=== PATIENT | female | born 1965 | race African-American/Black ===

== ENCOUNTER 2016-08-17 21:03 | Emergency (ER) | payer MEDICAID ==
[~2016-08-17] VITALS: Ht 160 cm; Wt 120.2 kg
[~2016-08-17 21:03] MED LIST: HYDROCODON-ACE1 EA15 ORAL; IBUPROFEN600 MG ORAL; IBUPROFEN600 MG PO; LASIX20 M1 ORAL; LEVAQUIN500 MG ORAL; NAPROSYN500 M1 ORAL; NKM; NORCO 5-325 TA1 EACH ORAL; PERCOCET 5-3251 EACH PO; VALIUM5 MG PO; VICODIN 5-5001 EACH PO
[2016-08-17] MEDS ORDERED: Naproxen 500mg tab ORAL ONE (21:30)
[2016-08-17] MEDS ORDERED: DuoNeb 0.5-3(2.5)mg/3ml neb HHN ONE (21:30)
[2016-08-17] MEDS ORDERED: Azithromycin 250mg tab ORAL ONE (21:30)
[2016-08-17] MEDS ORDERED: ALBUTEROL SULF8.5 GM INH (21:31)
[2016-08-17] MEDS ORDERED: NAPROSYN500 M1 ORAL (21:31)
[2016-08-17] MEDS ORDERED: AZITHROMYCIN250 MG ORAL (21:31)
--- NOTE | 2016-08-17 21:46 | Emergency Room Report ---
History of Present Illness General Chief Complaint: Upper Respiratory Illness Source: Patient, PMD Present Illness HPI Patient is a 50-year-old female brought in by ambulance after increased difficulty breathing. The patient gradual onset of symptoms over the past 7 days. Patient initially had a fever patient had complained of productive cough for the past 2 days. Patient denied any vomiting or increased leg swelling. The patient stated that she had no prior history of asthma. Patient had denied any chest pain except with coughing. Allergies: Coded Allergies: No Known Allergies (Unverified , 08/24/12) Patient History Past Medical History: see triage record Last Menstrual Period: Post Now: No : 2 Para: 2 Reviewed Nursing Documentation: PMH: Agreed, PSxH: Agreed Nursing Documentation-PMH Hx Cardiac Problems: No Hx Hypertension: No - water pills Hx Cancer: No Hx Gastrointestinal Problems: Yes Hx Neurological Problems: Yes - CHRONIC BACK PAIN Hx Transient Ischemic Attacks: Yes Review of Systems All Other Systems: negative except mentioned in HPI Physical Exam Vital Signs Date Time Temp Pulse Resp B/P Pulse Ox O2 Delivery O2 Flow Rate FiO2 08/17/16 21:07 99.3 109 24 123/76 98 Room Air General Appearance: well appearing, no apparent distress, alert, GCS 15, non- toxic Head: normocephalic, atraumatic ENT: hearing grossly normal, normal voice Neck: full range of motion, supple Respiratory: no respiratory distress, speaking full sentences Cardiovascular #1: normal inspection, normal peripheral pulses, regular rate, rhythm, no edema Gastrointestinal: normal inspection, normal bowel sounds, non tender, soft, no mass Musculoskeletal: normal inspection, back normal, digits/nails normal, no calf tenderness Neurologic: normal inspection, alert, oriented x3, responsive, 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 Patient's benign exam and does not appear to require any further imaging at this time. The patient was given a breathing treatment. The patient was noted to have symptoms consistent with an viral infection with secondary pneumonia.The chest x-ray one view interpreted by me showed normal cardiac size with the right lung infiltrate there is no evident the mediastinal widening. The patient is advised to follow up with primary care doctor in 1-2 days. Patient is advised to return if any worsening condition or if any changes in status that are concerning. Last Vital Signs Date Time Temp Pulse Resp B/P Pulse Ox O2 Delivery O2 Flow Rate FiO2 08/17/16 21:07 99.3 109 24 123/76 98 Room Air Status: improved Disposition: HOME, SELF-CARE Condition: Stable Scripts Albuterol Sulfate* (ALBUTEROL SULFATE MDI*) 8.5 Gm Hfa.aer.ad 2 PUFF INH Q4H, #1 INH 0 Refills Prov: Franklin Hall 08/17/16 Azithromycin* (ZITHROMAX*) 250 Mg Tablet 250 MG ORAL DAILY for 4 Days, #4 TAB 0 Refills Prov: Franklin Hall 08/17/16 Naproxen* (NAPROSYN*) 500 Mg Tablet 500 MG ORAL TWICE A DAY, #30 TAB Prov: Franklin Hall 08/17/16 Patient Instructions: Community-Acquired Pneumonia, Adult Franklin Hall Aug 17, 2016 21:46
[2016-08-17 22:09] VITALS: BP 119/66
[2016-08-17 22:12] VITALS: BP 119/66
--- NOTE | 2016-08-18 09:58 | Diagnostic Imaging Report ---
Indication: Shortness of breath Technique: XRAY CHEST 1 V Comparison: 01/18/15 Findings: The cardiomediastinal silhouette is within normal limits. There is no focal consolidation, pneumothorax or pleural effusion. Osseous structures demonstrate no acute abnormality. Impression: No acute cardiopulmonary disease.
== END 2016-08-17 22:15 | disposition home or self-care (01) ==
LOC: EMR 21:32
DX: J18.9 Pneumonia, unspecified organism (principal); Z86.73 Personal history of transient ischemic attack (TIA), and cerebral infarction without residual deficits
CPT/HCPCS: 71010; 94640; 94664; 99284; Q0144; J7620

== ENCOUNTER 2016-08-27 19:09 | Emergency (ER) | payer MEDICAID ==
[~2016-08-27] VITALS: Ht 160 cm; Wt 120.2 kg
[~2016-08-27 19:09] MED LIST changes: +ALBUTEROL SULF8.5 GM INH; +AZITHROMYCIN250 MG ORAL
[2016-08-27] MEDS ORDERED: Albuterol ud Inhalation HHN ONE (20:30)
--- NOTE | 2016-08-27 20:52 | Emergency Room Report ---
History of Present Illness General Chief Complaint: Upper Respiratory Illness Present Illness HPI 50-year-old female presents to emergency Department complaining of left-sided rib cage pain that radiates to the back x2 days. Patient reports pain as 5/10 in severity and she notes that she feels the pain during the end of expiration. Patient reports being treated for pneumonia 2 weeks ago and states her cough has not resolved since. Patient does report moderate amount of coughing daily. Patient denies productive sputum at this time. Patient states she has an inhaler which she has been using intermittently but not as frequently as prescribed. Patient states that she does have relief of her symptoms temporarily for approximately one hour after using albuterol inhaler. Patient denies fevers or chills although she does report that she is currently experiencing menopausal hot flashes. She denies recent fall, recent travel. Patient denies past medical history other than HTN which is managed with HCTZ. Allergies: Coded Allergies: TRAMADOL (Verified Allergy, Unknown, 08/17/16) Patient History Past Medical History: see triage record Past Surgical History: none Pertinent Family History: none Immunizations: UTD Reviewed Nursing Documentation: PMH: Agreed, PSxH: Agreed Nursing Documentation-PMH Hx Cardiac Problems: No Hx Hypertension: No - water pills Hx Cancer: No Hx Gastrointestinal Problems: Yes Hx Neurological Problems: Yes - CHRONIC BACK PAIN Hx Transient Ischemic Attacks: Yes Review of Systems All Other Systems: negative except mentioned in HPI Physical Exam Vital Signs Date Time Temp Pulse Resp B/P Pulse Ox O2 Delivery O2 Flow Rate FiO2 08/27/16 19:27 98.1 107 20 132/79 100 Room Air Sp02 EP Interpretation: reviewed, abnormal - tachycardic at 107 General Appearance: no apparent distress, alert, GCS 15, non-toxic Head: normocephalic, atraumatic Eyes: bilateral eye PERRL, bilateral eye normal inspection ENT: hearing grossly normal, normal pharynx, no angioedema, normal voice Neck: full range of motion, supple/symm/no masses Respiratory: chest non-tender, lungs clear, normal breath sounds, speaking full sentences Cardiovascular #1: regular rate, rhythm, no edema, normal capillary refill Gastrointestinal: non tender, soft, no guarding, no rebound Rectal: deferred Musculoskeletal: back normal, gait/station normal, normal range of motion, non- tender, no calf tenderness Neurologic: alert, oriented x3, responsive, motor strength/tone normal, sensory intact, speech normal Psychiatric: judgement/insight normal, memory normal, mood/affect normal, no suicidal/homicidal ideation Skin: normal color, no rash, warm/dry, well hydrated Lymphatic: no adenopathy Medical Decision Making PA Attestation Dr. Krishna is my supervising Physician whom patient management has been discussed with. ER Course PT. presents to ED c/ o left sided pain in the chest and back with continued coughing x 2 weeks. pain onset is x 2 days. pain exacerbated with exhalation. VS: mildly tachycardic at 107, afebrile, 100% oxygenation, non tachypneic, although shallow breaths are observed. pt. states deep breaths illicit coughing. dDX considered include but are not limited to: URI, pneumonia, atelectasis, Bronchitis, Pleurisy, TX, PE HPI and PE most consistent with bronchitis type cough and pleurisy will see if pt. has relief from another nebulized treatment, or will r/o TX/PE ORDERS: - CXR: no consolidation, no effusion per interpretation in the ED by Dr. Krishna. Interventions: Nebulized albuterol, upon re-evaluation pt. states she is still having the discomfort and that the treatment had no effect on the pain. that she feels with exhalation. d/w Dr. Hall whom previously saw this pt. 2 weeks ago, and who the pt. will be signed out to today. will do labs to R/O TX and PE. - EKG: -CBC:Pending CMP:Pending Troponins:Pending -Ck-MB:Pending -Total CK: Pending - D-Dimer:Pending EKG Diagnostic Results Rate: normal - 95 Rhythm: NSR ST Segments: no acute changes ASA given to the pt in ED: No PA Scribe Text interpreted by Dr. Hall Chest X-Ray Diagnostic Results EP Interpretation: Yes - interpreted by Dr. Krishna Findings: no consolidation, no effusion, no pneumothorax, no acute cardiopulmonary disease Number of Views: 1 PA Scribe Text interpreted by Dr. Krishna Last Vital Signs Date Time Temp Pulse Resp B/P Pulse Ox O2 Delivery O2 Flow Rate FiO2 08/27/16 20:36 83 16 Room Air 1/30/17 20:36 100 08/27/16 19:27 98.1 132/79 Disposition: HOME, SELF-CARE Condition: Stable Signed Out To: Dr. Hall Scripts Guaifenesin/Codeine Phos* (ROBITUSSIN AC*) 118 Ml Liquid 5 ML ORAL Q4H Y for For Cough, #118 ML 0 Refills Prov: Franklin Hall 08/27/16 Additional Instructions: Take medications as directed. Follow up with PCP in 3-5 days Return sooner to ED if new symptoms occur, or current symptoms become worse. Janice Segura Aug 27, 2016 20:52
[2016-08-27 22:04] LABS: BASOPHILS % (AUTO) 0.9 % (0.0-2.0); EOSINOPHILS % (AUTO) 2.3 % (0.0-3.0); LYMPHOCYTES % (AUTO) 39.7 % (20.0-45.0); MEAN CORPUSCULAR HEMOGLOBIN 26.6 PG (27.0-31.0); MEAN CORPUSCULAR HGB CONC 31.3 G/DL (32.0-36.0); MEAN CORPUSCULAR VOLUME 85 FL (80-99); MEAN PLATELET VOLUME 7.8 FL (6.5-10.1); MONOCYTES % (AUTO) 6.7 % (1.0-10.0); NEUTROPHILS % (AUTO) 50.4 % (45.0-75.0); PLATELET COUNT 196 K/UL (150-450); RED BLOOD COUNT 4.49 M/UL (4.20-5.40); RED CELL DISTRIBUTION WIDTH 13.4 % (11.6-14.8); WHITE BLOOD COUNT 4.6 K/UL (4.8-10.8)
[2016-08-27 22:30] LABS: ALANINE AMINOTRANSFERASE 29 U/L (3-33); ALBUMIN/GLOBULIN RATIO 1.2 (1.0-2.7); ANION GAP 14 (5-15); ASPARTATE AMINO TRANSFERASE 18 U/L (5-40); CALCIUM 9.9 mg/dL (8.6-10.2); CARBON DIOXIDE 29 mEQ/L (20-30); CHLORIDE 101 mEQ/L (98-107); CREATININE 0.8 mg/dL (0.5-0.9); GLOMERULAR FILTRATION RATE > 60 mL/min (>60); HEMOLYSIS 5; POTASSIUM 3.7 mEQ/L (3.4-4.9); SODIUM 144 mEQ/L (135-145); TOTAL PROTEIN 7.6 g/dL (6.6-8.7)
[2016-08-27 22:54] LABS: TROPONIN I < 0.30 ng/mL (<=0.30)
[2016-08-27 23:25] VITALS: BP 119/77
[2016-08-27] MEDS ORDERED: GUAIFENESIN-CO118 M1 ORAL (23:38)
[2016-08-27 23:46] VITALS: BP 119/77
--- NOTE | 2016-08-28 10:51 | Diagnostic Imaging Report ---
Indication: COUGH Technique: One view of the chest Comparison: 08/19/16 Findings: Lungs and pleural spaces are clear. Heart size is normal no significant interim change Impression: No acute process This agrees with the preliminary interpretation provided by the emergency room physician
[2016-08-29 14:34] LABS: CKMB < 1.5 ng/mL (< 3.8)
--- NOTE | 2016-08-30 15:42 | Cardiology Report ---
APPROVED REPORT EKG Measurement Heart [id number] Normal sinus rhythm Possible Left atrial enlargement Borderline ECG
== END 2016-08-27 23:48 | disposition home or self-care (01) ==
LOC: EMR 20:51
DX: R07.9 Chest pain, unspecified (principal); R05 Cough; R00.0 Tachycardia, unspecified; I10 Essential (primary) hypertension; Z86.73 Personal history of transient ischemic attack (TIA), and cerebral infarction without residual deficits; Z87.19 Personal history of other diseases of the digestive system
CPT/HCPCS: 36415; 71010; 80053; 82550; 82553; 84484; 85025; 85379; 93005; 94640; 94664; 99283

== ENCOUNTER 2017-04-29 14:23 | Emergency (ER) | payer MEDICAID ==
[~2017-04-29] VITALS: Ht 160 cm; Wt 117.9 kg
[~2017-04-29 14:23] MED LIST changes: +GUAIFENESIN-CO118 M1 ORAL
[2017-04-29] MEDS ORDERED: Tylenol #3 tab (300mg/30mg) ORAL ONE (15:30)
--- NOTE | 2017-04-29 16:37 | Diagnostic Imaging Report ---
Indication: Back pain Comparison: None Findings: 3 views of the sacrum and coccyx were obtained. Findings: No acute fracture is identified. The sacroiliac joints are unremarkable. Sacral ala appear symmetric. There is some obscuring due to overlying bowel gas and stool. Impression: No acute injury identified.
[2017-04-29] MEDS ORDERED: IBUPROFEN600 MG ORAL (16:39)
[2017-04-29] MEDS ORDERED: ACETAMINOPHEN-1 EAC1 ORAL (16:39)
[2017-04-29 16:50] VITALS: BP 148/99
--- NOTE | 2017-04-29 22:08 | Emergency Room Report ---
History of Present Illness General Chief Complaint: Pain Source: Patient Present Illness HPI The patient is a 51-year-old female presenting for back pain. She states that this began 3 weeks prior after going to [employer] ([place]) and sitting on water slide. Pain is an 8/10 dull ache and does not radiate from the mid lower back. Worse with laying down and sitting. She has tried Motrin and Tylenol which does help. She denies any numbness or tingling. She denies previous back injury. She denies urinary incontinence. She denies any other symptoms including N, V, F, chills Allergies: Coded Allergies: TRAMADOL (Verified Allergy, Unknown, 08/17/16) Patient History Past Medical History: see triage record Pertinent Family History: none Last Menstrual Period: na Now: No Reviewed Nursing Documentation: PMH: Agreed, PSxH: Agreed Nursing Documentation-PMH Hx Cardiac Problems: No Hx Hypertension: Yes Hx Cancer: No Hx Gastrointestinal Problems: Yes Hx Neurological Problems: Yes - CHRONIC BACK PAIN Hx Transient Ischemic Attacks: Yes Review of Systems All Other Systems: negative except mentioned in HPI Physical Exam Vital Signs Date Time Temp Pulse Resp B/P (MAP) Pulse Ox O2 Delivery O2 Flow Rate FiO2 04/29/17 14:45 98.1 121 18 152/101 98 Room Air Sp02 EP Interpretation: reviewed, normal General Appearance: no apparent distress, alert, GCS 15, non-toxic Head: normocephalic, atraumatic Eyes: bilateral eye normal inspection, bilateral eye PERRL ENT: hearing grossly normal, normal pharynx, no angioedema, normal voice Gastrointestinal: normal bowel sounds, non tender, soft, non-distended, no guarding, no rebound Musculoskeletal: normal inspection, digits/nails normal, gait/station normal, tender - TTP over the midline coccyx Neurologic: alert, oriented x3, responsive, motor strength/tone normal, sensory intact, speech normal Psychiatric: judgement/insight normal, memory normal, mood/affect normal, no suicidal/homicidal ideation Skin: normal color, no rash, warm/dry, well hydrated Medical Decision Making PA Attestation Dr. Krishna is my supervising physician. Patient management was discussed with my supervising physician Diagnostic Impression: Primary Impression: Contusion Qualified Codes: S70.00XA - Contusion of unspecified hip, initial encounter ER Course The patient is a 51-year-old female presenting for back pain. Ddx considered include but not limited to lumbar strain, degenerative disease, epidural abscess, cauda equina, chronic pain, fracture, among others PE: NAD TTP over midline coccyx. No edema or ecchymosis. Normal gait Xrays unremarkable The patient will be DC'ed home with prescription for pain medications. ER precautions given Other X-Ray Diagnostic Results Other X-Ray Diagnostic Results : X-Ray ordered: sacrum/coccyx # of Views/Limited Vs Complete: 3 View Indication: Pain EP Interpretation: Yes Interpretation: no dislocation, no soft tissue swelling, no fractures Impression: No acute disease Electronically Signed by: NOAH Arteaga Scribe Text I have reviewed the xray with my supervising physician and interpretation is that there are no fractures, dislocations or soft tissue swelling. Last Vital Signs Date Time Temp Pulse Resp B/P (MAP) Pulse Ox O2 Delivery O2 Flow Rate FiO2 04/29/17 16:50 98.1 75 18 148/99 98 Room Air Status: improved Disposition: HOME, SELF-CARE Condition: Improved Scripts Acetaminophen With Codeine (T#3) (TYLENOL #3 TAB*) Y Tab 1 TAB ORAL Q6HR Y for For Pain, #10 TAB Prov: GISELLE CROWE.A. 04/29/17 Ibuprofen* (MOTRIN*) 600 Mg Tablet 600 MG ORAL Q8H Y for For Pain, #30 TAB 0 Refills Prov: GISELLE CROWE.A. 04/29/17 Patient Instructions: Contusion Additional Instructions: I discussed my findings with the patient. All questions and concerns have been answered. Treatment and medication compliance have been addressed. I advised the patient that they need to follow up with PMD in 3-5 days. Return to ED if symptoms worsen, new symptoms arise, or if needed for any reason. Patient verbalized understanding of discharge instructions. GISELLE CROWE Apr 29, 2017 22:08
== END 2017-04-29 19:50 | disposition home or self-care (01) ==
LOC: EMR 15:11
DX: S30.0XXA Contusion of lower back and pelvis, initial encounter (principal); X50.9XXA Other and unspecified overexertion or strenuous movements or postures, initial encounter; Y92.830 Public park as the place of occurrence of the external cause; G89.29 Other chronic pain; I10 Essential (primary) hypertension; Z86.73 Personal history of transient ischemic attack (TIA), and cerebral infarction without residual deficits; Z88.6 Allergy status to analgesic agent
CPT/HCPCS: 72220; 99284

== ENCOUNTER 2017-08-10 18:28 | Emergency (ER) | payer MEDICAID ==
[~2017-08-10] VITALS: Ht 160 cm; Wt 120.2 kg
[~2017-08-10 18:28] MED LIST changes: +ACETAMINOPHEN-1 EAC1 ORAL
[2017-08-10 18:59] VITALS: BP 137/96
[2017-08-10 19:30] VITALS: BP 137/96
[2017-08-10 21:00] VITALS: BP 132/90
--- NOTE | 2017-08-10 21:32 | Emergency Room Report ---
History of Present Illness General Chief Complaint: Headache Source: Patient, Medical Record Present Illness HPI 51 YO Female. presents to the ED c/o headache x since awakening this am. 03/07 in severity. KELLEY was progressive however facial numbness was since waking up. Described as left-sided facial paresthesias with dull ache to the left side of head. Patient denies pulsating vein or scalp tenderness. 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 denies unilateral weakness, or symptoms in the UE's or LE's, denies recent trauma or fall. denies recent illness, tinnitus, or neck pain. denies visual changes, N/V. Allergies: Coded Allergies: TRAMADOL (Verified Allergy, Unknown, 08/17/16) Patient History Past Medical History: see triage record, CVA/TIA Past Surgical History: none Pertinent Family History: none Last Menstrual Period: 04/13 Now: No Reviewed Nursing Documentation: PMH: Agreed, PSxH: Agreed Nursing Documentation-PMH Past Medical History: No History, Except For Hx Cardiac Problems: No Hx Hypertension: Yes Hx Cancer: No Hx Gastrointestinal Problems: Yes Hx Neurological Problems: Yes - CHRONIC BACK PAIN Hx Transient Ischemic Attacks: Yes Review of Systems All Other Systems: negative except mentioned in HPI Physical Exam Vital Signs Date Time Temp Pulse Resp B/P (MAP) Pulse Ox O2 Delivery O2 Flow Rate FiO2 08/10/17 18:30 98.2 98 18 137/96 98 Room Air Sp02 EP Interpretation: reviewed, normal General Appearance: no apparent distress, alert, GCS 15, non-toxic Head: normocephalic, atraumatic Eyes: bilateral eye normal inspection, bilateral eye PERRL, bilateral eye EOMI ENT: hearing grossly normal, normal voice, TMs + canals normal Neck: full range of motion, no meningismus, no bony tend Respiratory: lungs clear, normal breath sounds, speaking full sentences Cardiovascular #1: regular rate, rhythm Rectal: deferred Musculoskeletal: back normal, gait/station normal, normal range of motion, non- tender Neurologic: alert, oriented x3, responsive, motor strength/tone normal, sensory intact, normal gait, speech normal, no pronator, other - negative ledezma's, grossly normal Psychiatric: judgement/insight normal Skin: normal color, no rash, warm/dry, well hydrated Lymphatic: no adenopathy Medical Decision Making PA Attestation Dr. Paul is my supervising Physician whom patient management has been discussed with. Diagnostic Impression: Primary Impression: Facial numbness Additional Impressions: Facial pain, atypical Headache Qualified Codes: R51 - Headache suspected early baer palsy ER Course 51 YO Female. presents to the ED c/o headache x since awakening this am. 10 in severity. KELLEY was progressive however facial numbness was since waking up. Described as left-sided facial paresthesias with dull ache to the left side of head. Patient denies pulsating vein or scalp tenderness. 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 denies unilateral weakness, or symptoms in the UE's or LE's, denies recent trauma or fall. denies recent illness, tinnitus, or neck pain. denies visual changes, N/V. Ddx considered but are not limited to migraine, SAH, Psedudo motor Cerebri, Mass lesion, Cluster KELLEY, Tension KELLEY, Post lumbar puncture KELLEY. CVA, bells palsy, shingles. Vital signs: are WNL, pt. is afebrile H&PE are most consistent with atypical KELLEY and left sided facial paresthesia. highly suspect impending baer's palsy. pt. does not exhibit neurological deficit or facial droop. ORDERS: - CT Head no contrast- ordered due to history of CVA and patient's age-was preliminarily read as normal ED INTERVENTIONS: - Reglan-- improvement of pain however of left-sided paresthesia continues without change. -Discussed with patient symptoms are highly suspicious of impending bells palsy. Discussed with patient that she'll be discharged with oral steroids to be taken only she begins to have left eyebrow droop. Discussed with this patient that if her symptoms worsen or she is facial droop that does not involve the l eyebrows that she needs to return promptly to the emergency department as this may indicate serious pathology. She verbalizes her understanding and agreement with this treatment plan. DISCHARGE: At this time pt. is stable for d/c to home. Will provide printed patient care instructions, and any necessary prescriptions. Care plan and follow up instructions have been discussed with the patient prior to discharge. CT/MRI/US Diagnostic Results CT/MRI/US Diagnostic Results : Imaging Test Ordered: CT Head no contrast. Impression "No evidence of acute fracture, hemorrhage, or intracranial process "-Per Preliminary [facility] radiology report- Please see report for specific details. Last Vital Signs Date Time Temp Pulse Resp B/P (MAP) Pulse Ox O2 Delivery O2 Flow Rate FiO2 08/10/17 18:59 98.2 78 18 137/96 98 Room Air Disposition: HOME, SELF-CARE Condition: Stable Scripts Prednisone* (PREDNISONE*) 20 Mg Tablet 3 TAB ORAL DAILY for 5 Days, #15 TAB Prov: Janice Segura 08/10/17 Aspirin/Acetaminophen/Caffeine (EXCEDRIN MIGRAINE GELTAB) 1 Each Tablet 1 EACH PO Q6HR, #20 TAB Prov: Janice Segura 08/10/17 Patient Instructions: Baer Palsy, General Headache Without Cause Additional Instructions: Take medications as directed. Follow up with a Primary Care Provider in 3-5 days, even if your symptoms have resolved. --Please review list of primary care clinics, if you do not already have a primary care provider Return sooner to ED if new symptoms occur, or current symptoms become worse. - Please note that this Emergency Department Report was dictated using [email or web address] grader technology software, occasionally this can lead to erroneous entry secondary to interpretation by the dictation equipment. Janice Segura Aug 10, 2017 21:32
[2017-08-10] MEDS ORDERED: PREDNISONE20 MG ORAL (21:36)
[2017-08-10] MEDS ORDERED: EXCEDRIN MIGRA1 EACH PO (21:36)
[2017-08-10 21:52] VITALS: BP 137/96
--- NOTE | 2017-08-11 08:29 | Diagnostic Imaging Report ---
Indication: Pain, headache Technique: Continuous helical CT scanning of the head was performed utilizing automated exposure control without intravenous contrast material. Axial and coronal reconstructions were obtained. Comparison: 06/11/2015 CT dose: Total DLP 1354.97 mGycm; CTDI vol 70.38 mGy Findings: There is no acute intracranial hemorrhage, mass effect, midline shift or cortical edema. Ventricles are normal in size and configuration and stable compared to the prior exam. Visualized mastoid air cells and paranasal sinuses are unremarkable. No focal lesions of the bony calvarium or soft tissues of the scalp are seen. Impression: No evidence of acute intracranial hemorrhage, mass effect or cortical edema. MRI may be obtained for more sensitive evaluation as clinically indicated. This corresponds with the [facility] preliminary report. The CT scanner at [facility] is accredited by the [employer] and the scans are performed using protocols designed to limit radiation exposure to as low as reasonably achievable to attain images of sufficient resolution adequate for diagnostic evaluation.
== END 2017-08-10 21:52 | disposition home or self-care (01) ==
LOC: EMR 18:46
DX: R20.2 Paresthesia of skin (principal); R51 Headache; I10 Essential (primary) hypertension; Z86.73 Personal history of transient ischemic attack (TIA), and cerebral infarction without residual deficits
CPT/HCPCS: 70450; 99284

== ENCOUNTER 2017-10-27 15:05 | Emergency (ER) | payer MEDICAID ==
[~2017-10-27] VITALS: Ht 160 cm; Wt 120.2 kg
[~2017-10-27 15:05] MED LIST changes: +EXCEDRIN MIGRA1 EACH PO; +PREDNISONE20 MG ORAL
[2017-10-27 15:15] VITALS: BP 181/90
[2017-10-27] MEDS ORDERED: Ketorolac 60mg Inj IM ONE (16:00)
--- NOTE | 2017-10-27 16:09 | Emergency Room Report ---
History of Present Illness General Chief Complaint: Back Pain-No Injury Source: Patient Present Illness HPI 52-year-old female presents to the emergency department complaining of 8 out of 10 in severity right-sided low back pain with intermittent radiation down into the right hip 3 days. She states onset was after working for long hours this weekend. Patient states she stands on her feet the entire time. Patient states she has a history of sciatica in the past. Patient denies trauma or fall. Patient denies history of cancer or recent spinal procedures. Denies fevers, chills, night sweats. Denies numbness tingling or loss of sensation or gross motor movements of the extremities, incontinence of bowel or bladder. Denies CP, Palpitations, LOC, AMS, dizziness, Changes in Vision, Sensation, paresthesias, or a sudden severe headache. Allergies: Coded Allergies: TRAMADOL (Verified Allergy, Unknown, 08/17/16) Patient History Past Medical History: see triage record Past Surgical History: none Pertinent Family History: none Last Menstrual Period: Post Immunizations: UTD Reviewed Nursing Documentation: PMH: Agreed; PSxH: Agreed Nursing Documentation-PMH Hx Cardiac Problems: No Hx Hypertension: Yes Hx Cancer: No Hx Gastrointestinal Problems: Yes Hx Neurological Problems: Yes - CHRONIC BACK PAIN, Prior back injury Hx Transient Ischemic Attacks: Yes Review of Systems All Other Systems: negative except mentioned in HPI Physical Exam Vital Signs Date Time Temp Pulse Resp B/P (MAP) Pulse Ox O2 Delivery O2 Flow Rate FiO2 10/27/17 15:15 98.2 85 17 181/90 98 Room Air 98.2 Sp02 EP Interpretation: reviewed, normal General Appearance: alert, GCS 15, non-toxic, mild distress Head: normocephalic, atraumatic ENT: hearing grossly normal, normal voice Neck: full range of motion Respiratory: chest non-tender, lungs clear, normal breath sounds, no respiratory distress, no wheezing, speaking full sentences Cardiovascular #1: regular rate, rhythm, no edema, normal capillary refill Gastrointestinal: non tender, soft Rectal: deferred Genitourinary: normal inspection, no CVA tenderness Musculoskeletal: back normal, gait/station normal, normal range of motion, tender - Right paraspinal ttp to the musculature of the lower L-spine, and begining of the sacrum area. FROM, Ambulatory. no midline ttp. Neurologic: alert, oriented x3, responsive, motor strength/tone normal, sensory intact, normal gait, speech normal, grossly normal Psychiatric: judgement/insight normal Skin: normal color, no rash, warm/dry, well hydrated Medical Decision Making PA Attestation Dr. Hall is my supervising Physician whom patient management has been discussed with. Diagnostic Impression: Primary Impression: Back pain Qualified Codes: M54.41 - Lumbago with sciatica, right side Additional Impression: Muscle spasm of back ER Course 52-year-old female presents to the emergency department complaining of 8 out of 10 in severity right-sided low back pain with intermittent radiation down into the right hip 3 days. She states onset was after working for long hours this weekend. Patient states she stands on her feet the entire time. Patient states she has a history of sciatica in the past. Patient denies trauma or fall. Patient denies history of cancer or recent spinal procedures. Denies fevers, chills, night sweats. Denies numbness tingling or loss of sensation or gross motor movements of the extremities, incontinence of bowel or bladder. Denies CP, Palpitations, LOC, AMS, dizziness, Changes in Vision, Sensation, paresthesias, or a sudden severe headache. Ddx considered but are not limited to Fracture, dislocation, contusion, epidural abscess, Sprain/Strain/Spasm Vital signs: are WNL, pt. is afebrile H&PE are most consistent with muscle strain/spasm + with right sciatica exacerbation- hx of sciatica ORDERS: none required at this time. ED INTERVENTIONS: -Soma PO -Toradol IM DISCHARGE: At this time pt. is stable for d/c to home. Will provide printed patient care instructions, and any necessary prescriptions. Care plan and follow up instructions have been discussed with the patient prior to discharge. Last Vital Signs Date Time Temp Pulse Resp B/P (MAP) Pulse Ox O2 Delivery O2 Flow Rate FiO2 10/27/17 15:15 98.2 85 19 181/90 98 Room Air 98.2 Disposition: HOME, SELF-CARE Condition: Stable Scripts Naproxen* (NAPROXEN*) 500 Mg Tablet 500 MG ORAL TWICE A WEEK, #20 TAB 0 Refills Prov: Janice Segura P.A. 10/27/17 Lidocaine (Lidoderm) 1 Each Adh..patch 1 PATCH TOPIC DAILY, #30 PATCH 0 Refills Patch(es) may remain in place for up to 12 hours in any 24-hour period. Prov: Janice Segura 10/27/17 Methocarbamol* (ROBAXIN*) 500 Mg Tablet 1000 MG PO TID, #42 TAB 0 Refills Prov: Janice Segura 10/27/17 Patient Instructions: Back Pain, Adult Additional Instructions: Take medications as directed. Follow up with a Primary Care Provider in 3-5 days, even if your symptoms have resolved. --Please review list of primary care clinics, if you do not already have a primary care provider Return sooner to ED if new symptoms occur, or current symptoms become worse. Do not drink alcohol, drive, or operate heavy machinery while taking Robaxin as this may cause drowsiness. - Please note that this Emergency Department Report was dictated using [employer] Software[employer] supervisor technology software, occasionally this can lead to erroneous entry secondary to interpretation by the dictation equipment. Janice Segura Oct 27, 2017 16:09
[2017-10-27] MEDS ORDERED: ROBAXIN500 MG PO (16:11)
[2017-10-27] MEDS ORDERED: NAPROXEN500 M2 ORAL (16:11)
[2017-10-27] MEDS ORDERED: LIDODERM700 M1 TOPIC (16:11)
[2017-10-27 16:20] VITALS: BP 153/103
== END 2017-10-27 16:33 | disposition home or self-care (01) ==
LOC: EMR 15:49
DX: M54.5 Low back pain (principal); M62.830 Muscle spasm of back; G89.29 Other chronic pain; I10 Essential (primary) hypertension; Z86.73 Personal history of transient ischemic attack (TIA), and cerebral infarction without residual deficits
CPT/HCPCS: 96372; 99284

== ENCOUNTER 2018-07-07 22:28 | Emergency (ER) | payer MEDICAID ==
[~2018-07-07] VITALS: Ht 160 cm; Wt 127.0 kg
[~2018-07-07 22:28] MED LIST changes: +LIDODERM700 M1 TOPIC; +NAPROXEN500 M2 ORAL; +ROBAXIN500 MG PO
[2018-07-07 22:39] VITALS: BP 151/72
[2018-07-07 23:35] LABS: BASOPHILS % (AUTO) 1.3 % (0.0-2.0); EOSINOPHILS % (AUTO) 3.1 % (0.0-3.0); HEMATOCRIT 37.4 % (37.0-47.0); HEMOGLOBIN 12.1 G/DL (12.0-16.0); LYMPHOCYTES % (AUTO) 31.5 % (20.0-45.0); MEAN CORPUSCULAR VOLUME 81 FL (80-99); MONOCYTES % (AUTO) 4.3 % (1.0-10.0); NEUTROPHILS % (AUTO) 59.8 % (45.0-75.0); PLATELET COUNT 197 K/UL (150-450); RED BLOOD COUNT 4.65 M/UL (4.20-5.40); RED CELL DISTRIBUTION WIDTH 13.1 % (11.6-14.8); WHITE BLOOD COUNT 5.5 K/UL (4.8-10.8)
[2018-07-07 23:36] LABS: APPEARANCE,URINE CLEAR; BILIRUBIN, URINE NEGATIVE (NEGATIVE); GLUCOSE, URINE (UA) NEGATIVE (NEGATIVE); KETONES,URINE NEGATIVE (NEGATIVE); LEUKOCYTE ESTERASE ,URINE NEGATIVE (NEGATIVE); NITRITE,URINE NEGATIVE (NEGATIVE); PH,URINE 5 (4.5-8.0); UROBILINOGEN,URINE NORMAL MG/DL (0.0-1.0)
[2018-07-07 23:40] LABS: COLOR,URINE YELLOW; PROTEIN,URINE NEGATIVE (NEGATIVE)
[2018-07-07 23:52] LABS: ANION GAP 9 mmol/L (5-15); BLOOD UREA NITROGEN 21 mg/dL (7-18); CALCIUM 9.4 MG/DL (8.5-10.1); CARBON DIOXIDE 30 MMOL/L (21-32); CHLORIDE 103 MMOL/L (98-107); CREATININE 0.9 MG/DL (0.55-1.30); POTASSIUM 3.4 MMOL/L (3.5-5.1); SODIUM 142 MMOL/L (136-145)
[2018-07-08] VITALS: BP 146/62
[2018-07-08 00:05] LABS: ALANINE AMINOTRANSFERASE 29 U/L (12-78); ALBUMIN 3.8 G/DL (3.4-5.0); ALBUMIN/GLOBULIN RATIO 0.8 (1.0-2.7); ALKALINE PHOSPHATASE 53 U/L (46-116); ASPARTATE AMINO TRANSFERASE 16 U/L (15-37); BILIRUBIN,TOTAL 0.3 MG/DL (0.2-1.0)
[2018-07-08] MEDS ORDERED: Aspirin Baby 81mg ORAL ONE (00:15)
[2018-07-08] MEDS ORDERED: Sodium Chloride 500ML 500 ML IV ONE (00:15)
--- NOTE | 2018-07-08 02:51 | Emergency Room Report ---
History of Present Illness General Chief Complaint: Upper Respiratory Illness Source: Patient, Medical Record Present Illness HPI Patient 52-year-old female who presented after increased cough and difficulty breathing. Patient reports having have worsened orthopnea and generalized weakness. This had been present for several weeks. The patient recently started on Lasix after having increased lower extremity swelling. This had been the long standing. Patient denied any fever. She reports having increased orthopnea which required her to sit up into a chair at nighttime. The patient recently been started on Lasix but does not have any prior history of congestive heart failure. Allergies: Coded Allergies: TRAMADOL (Verified Allergy, Unknown, 08/17/16) Patient History Past Medical History: see triage record Last Menstrual Period: n/a : 4 Para: 2 Reviewed Nursing Documentation: PMH: Agreed; PSxH: Agreed Nursing Documentation-PMH Past Medical History: No History, Except For Hx Cardiac Problems: No Hx Hypertension: Yes Hx Cancer: No Hx Gastrointestinal Problems: Yes Hx Neurological Problems: Yes - CHRONIC BACK PAIN, Prior back injury Hx Transient Ischemic Attacks: Yes Review of Systems All Other Systems: negative except mentioned in HPI Physical Exam Vital Signs Date Time Temp Pulse Resp B/P (MAP) Pulse Ox O2 Delivery O2 Flow Rate FiO2 07/07/18 22:30 98.2 109 23 151/72 100 Room Air Sp02 EP Interpretation: reviewed, normal General Appearance: normal inspection, well appearing, no apparent distress, alert, GCS 15, obese Head: atraumatic ENT: normal ENT inspection, hearing grossly normal, normal voice Neck: normal inspection, full range of motion, supple, no bony tend Respiratory: normal inspection, lungs clear, normal breath sounds, no respiratory distress, no retraction, no wheezing Cardiovascular #1: regular rate, rhythm, edema - 2+_ Gastrointestinal: normal inspection, normal bowel sounds, non tender, soft, no guarding, no hernia Genitourinary: no CVA tenderness Musculoskeletal: normal inspection, back normal, normal range of motion Neurologic: normal inspection, alert, responsive, speech normal Psychiatric: normal inspection, judgement/insight normal, mood/affect normal Skin: normal inspection, normal color, no rash Medical Decision Making Diagnostic Impression: Primary Impression: Chest pain Additional Impressions: ACS (acute coronary syndrome) Upper respiratory infection ER Course Patient was in for shortness of breath. Differential included but was not limited to anemia, pneumonia, pneumothorax, myocardial infarction, pericardial effusion, congestive heart failure, acidosis. Because of complexity of patient' s case laboratory testing and imaging studies were ordered. The patient was noted to have the EKG interpreted by me with the normal sinus rhythm with a rate of 99 with inferior T-wave inversion and lateral T-wave inversion the patient the was noted to have bilateral asymmetric leg swelling.The patient appears to have some evidence of bronchitis however given the patient's abnormal EKG patient will likely require further inpatient workup due to recent chest discomfort. Chest x-ray one view interpreted by me showed normal cardiac size without evident infiltrate.The patient was given aspirin in the emergency department.Patient was discussed with Dr. Mcgovern for [facility] [place] Labs Test 07/07/18 23:00 White Blood Count 5.5 K/UL (4.8-10.8) Red Blood Count 4.65 M/UL (4.20-5.40) Hemoglobin 12.1 G/DL (12.0-16.0) Hematocrit 37.4 % (37.0-47.0) Mean Corpuscular Volume 81 FL (80-99) Mean Corpuscular Hemoglobin 26.1 PG (27.0-31.0) Mean Corpuscular Hemoglobin Concent 32.4 G/DL (32.0-36.0) Red Cell Distribution Width 13.1 % (11.6-14.8) Platelet Count 197 K/UL (150-450) Mean Platelet Volume 8.0 FL (6.5-10.1) Neutrophils (%) (Auto) 59.8 % (45.0-75.0) Lymphocytes (%) (Auto) 31.5 % (20.0-45.0) Monocytes (%) (Auto) 4.3 % (1.0-10.0) Eosinophils (%) (Auto) 3.1 % (0.0-3.0) Basophils (%) (Auto) 1.3 % (0.0-2.0) Urine Color Yellow Urine Appearance Clear Urine pH 5 (4.5-8.0) Urine Specific Addison 1.025 (1.005-1.035) Urine Protein Negative (NEGATIVE) Urine Glucose (UA) Negative (NEGATIVE) Urine Ketones Negative (NEGATIVE) Urine Blood Negative (NEGATIVE) Urine Nitrite Negative (NEGATIVE) Urine Bilirubin Negative (NEGATIVE) Urine Urobilinogen Normal MG/DL (0.0-1.0) Urine Leukocyte Esterase Negative (NEGATIVE) Urine RBC 0-2 /HPF (0 - 2) Urine WBC 0 /HPF (0 - 2) Urine Squamous Epithelial Cells Few /LPF (NONE/OCC) Urine Bacteria None /HPF (NONE) Sodium Level 142 MMOL/L (136-145) Potassium Level 3.4 MMOL/L (3.5-5.1) Chloride Level 103 MMOL/L (98-107) Carbon Dioxide Level 30 MMOL/L (21-32) Anion Gap 9 mmol/L (5-15) Blood Urea Nitrogen 21 mg/dL (7-18) Creatinine 0.9 MG/DL (0.55-1.30) Estimat Glomerular Filtration Rate > 60 mL/min (>60) Glucose Level 116 MG/DL (74-106) Calcium Level 9.4 MG/DL (8.5-10.1) Total Bilirubin 0.3 MG/DL (0.2-1.0) Aspartate Amino Transf (AST/SGOT) 16 U/L (15-37) Alanine Aminotransferase (ALT/SGPT) 29 U/L (12-78) Alkaline Phosphatase 53 U/L (46-116) Troponin I 0.000 ng/mL (0.000-0.056) Total Protein 8.8 G/DL (6.4-8.2) Albumin 3.8 G/DL (3.4-5.0) Globulin 5.0 g/dL Albumin/Globulin Ratio 0.8 (1.0-2.7) Thyroid Stimulating Hormone (TSH) 3.029 uiU/mL (0.358-3.740) EKG Diagnostic Results Rate: normal Rhythm: NSR ST Segments: no acute changes Last Vital Signs Date Time Temp Pulse Resp B/P (MAP) Pulse Ox O2 Delivery O2 Flow Rate FiO2 07/08/18 00:00 98.2 96 21 146/62 98 Room Air Status: unchanged Disposition: XFER SHT-TRM HOSP Condition: Serious Referrals: [facility],REFERRING (PCP) Franklin Hall MD Jul 08, 2018 02:51
[2018-07-08 03:00] VITALS: BP 129/68
[2018-07-08 05:00] VITALS: BP 126/63
[2018-07-08 05:11] VITALS: BP 126/63
--- NOTE | 2018-07-08 10:45 | Diagnostic Imaging Report ---
Indication: Dyspnea Comparison: 08/27/2016 A single view chest radiograph was obtained. Findings: Cardiomediastinal appearance is within normal limits for age. The lungs are clear. Pulmonary vascularity is appropriate. The diaphragmatic contour is smooth and costophrenic angles are sharp. No pleural effusions are identified. The bones are unremarkable. Impression: No acute findings
--- NOTE | 2018-07-08 15:27 | Cardiology Report ---
APPROVED REPORT EKG Measurement Heart [id number] Normal sinus rhythm Possible Left atrial enlargement T wave abnormality, consider inferior ischemia Abnormal ECG
== END 2018-07-08 05:15 | disposition short-term general hospital (02) ==
LOC: EMR 22:52
DX: R07.9 Chest pain, unspecified (principal); I24.9 Acute ischemic heart disease, unspecified; J06.9 Acute upper respiratory infection, unspecified; E66.9 Obesity, unspecified; I10 Essential (primary) hypertension; Z86.73 Personal history of transient ischemic attack (TIA), and cerebral infarction without residual deficits; Z88.8 Allergy status to other drugs, medicaments and biological substances
CPT/HCPCS: 36415; 71045; 80053; 81001; 84443; 84484; 85025; 86710; 86850; 86900; 86901; 93005; 99285; J8499

== ENCOUNTER 2018-08-18 19:43 | Emergency (ER) | payer MEDICAID ==
[~2018-08-18] VITALS: Ht 167.6 cm; Wt 105.7 kg
[2018-08-18 20:04] VITALS: BP 131/68
--- NOTE | 2018-08-18 20:05 | NUR ---
ED Nurse Note: Patient ambulated to ED with c/o left knee pain x1 day. Denies fall or trauma. AO4. NAD. Reports pain 05/07. ERMD at bedside
--- NOTE | 2018-08-18 20:13 | Emergency Room Report ---
History of Present Illness General Chief Complaint: Pain Source: Patient Present Illness HPI 52-year-old female patient presents the ER complaining of left knee pain x1 day. Patient reports pain symptoms began yesterday. Reports pain is continuous throughout the day whether at rest or with movement. Reports pain with movement. Denies acute injury or trauma. Denies history of gout. Denies calf pain. Denies taking blood thinner medications. States takes naproxen for pain symptoms. Denies history of diabetes. Denies recent travel or periods of immobilization. Denies history of knee surgery. Denies history of arthritis knee however reports history of arthritis in back. Allergies: Coded Allergies: TRAMADOL (Verified Allergy, Unknown, 08/17/16) Patient History Past Medical History: see triage record Now: No Reviewed Nursing Documentation: PMH: Agreed; PSxH: Agreed Nursing Documentation-PMH Past Medical History: No History, Except For Hx Cardiac Problems: No Hx Hypertension: Yes Hx Cancer: No Hx Gastrointestinal Problems: Yes Hx Neurological Problems: Yes - CHRONIC BACK PAIN, Prior back injury Hx Transient Ischemic Attacks: Yes Review of Systems All Other Systems: negative except mentioned in HPI Physical Exam Vital Signs Date Time Temp Pulse Resp B/P (MAP) Pulse Ox O2 Delivery O2 Flow Rate FiO2 08/18/18 19:59 98.1 116 14 131/68 98 Room Air Sp02 EP Interpretation: reviewed, normal General Appearance: well appearing, no apparent distress, alert, GCS 15, non- toxic Head: normocephalic, atraumatic Eyes: bilateral eye normal inspection, bilateral eye PERRL ENT: hearing grossly normal, normal pharynx, no angioedema, normal voice, uvula midline, moist mucus membranes Neck: full range of motion Respiratory: lungs clear, normal breath sounds, no rhonchi, no respiratory distress, no accessory muscle use, no wheezing, speaking full sentences Cardiovascular #1: regular rate, rhythm, no edema Cardiovascular #2: 2+ dorsalis pedis (R), 2+ dorsalis pedis (L) Musculoskeletal: back normal, digits/nails normal, gait/station normal, no calf tenderness, decreased range of motion - Left knee secondary to pain, Wendie' s Sign negative, other - NVI, no erythema, no edema, no warmth to touch, no ecchymosis, no laxity with varus or valgus stress, no gouty tophi, tender - left knee Neurologic: alert, oriented x3, responsive, motor strength/tone normal, sensory intact Skin: no rash Medical Decision Making PA Attestation Dr. Cobb is my supervising Physician whom patient management has been discussed with. Diagnostic Impression: Primary Impression: Knee pain, left ER Course Pt. presents to the ED c/o left knee pain. Ddx considered but are not limited to fracture, sprain, strain, contusion, dislocation, effusion, arthritis, tendopathy. Negative Homans sign, low suspicion for DVT per well's criteria. No erythema, no warmth to touch, no fever, nontoxic appearing, low suspicion for septic joint. Soft compartments, no pulselessness, no pallor, no paresthesias, low suspicion for compartment syndrome at this time. Vital signs: are WNL, pt. is afebrile Ordered X-ray and pain medication. ER COURSE Provided with pain medication and lidocaine patch. Pain with movement. An X-ray of the left knee shows no acute disease per the preliminary reading. DUKE wrap was applied to the left knee and was checked afterwards by me showing good alignment and support with distal neurovascular functioning intact. Crutches provided. Patient instructed on RICE method: rest, ice, compression, elevation. Patient instructed on rest, ice and heat. Patient instructed to be WBAT Contact information for orthopedic urgent care provided, follow-up with urgent care if unable to followup with primary care provider and get referral to client experience specialist. Followup with primary care provider. Discuss referral to ortho/pain management/ PT as needed. Discuss further imaging with MRI/CT as needed. DISCHARGE: -Rx provided for Tylenol for pain symptoms. At this time pt. is stable for d/c to home. Patient is resting comfortably, in no acute distress, nontoxic appearing, talking without difficulty. Will provide printed patient care instructions, and any necessary prescriptions. Patient instructed to follow with primary care provider in 3 - 5 days and to request further follow-up as needed. Care plan and follow up instructions have been discussed with the patient prior to discharge. Take medications as directed. Patient questions asked and answered. Patient reports understanding and agreement to treatment plan. ER precautions given, patient instructed to return to ER immediately for any new or worsening of symptoms. - Please note that this Emergency Department Report was dictated using [employer] waiter technology software, occasionally this can lead to erroneous entry secondary to interpretation by the dictation equipment. Other X-Ray Diagnostic Results Other X-Ray Diagnostic Results : X-Ray ordered: Left knee # of Views/Limited Vs Complete: 3 View Indication: Pain EP Interpretation: Yes PA Xray: Interpretation reviewed, by supervising MD, and agrees with findings. Interpretation: no dislocation, no soft tissue swelling, no fractures Impression: No acute disease ARNULFO Scribe Text Vick Lucero PA-Jasvir Last Vital Signs Date Time Temp Pulse Resp B/P (MAP) Pulse Ox O2 Delivery O2 Flow Rate FiO2 08/18/18 20:04 98.0 116 14 131/68 98 Room Air Status: improved Disposition: HOME, SELF-CARE Condition: Stable Scripts Acetaminophen* (TYLENOL EXTRA STRENGTH*) 500 Mg Tablet 500 MG ORAL Q8H PRN for Prn Headache/Temp > 101, #30 TAB 0 Refills Prov: Moshe Lucero 08/18/18 Patient Instructions: Knee Pain, [id number] Additional Instructions: Patient instructed to follow up with primary care provider and discuss further referral to orthopedics/physical therapy/pain management as needed. If unable to followup with PCP, followup with orthopedic urgent care in 5-7 days , call to schedule appointment. Patient instructed on RICE method: rest, ice, compression, elevation. Patient instructed to WBAT. Take medications as directed. Patient questions asked and answered. ER precautions given, patient instructed to return to ER immediately for any new or worsening of symptoms. [facility] [address] [facility] [address] [facility], [id number] [email or web address] Moshe Lucero Aug 18, 2018 20:13
[2018-08-18] MEDS ORDERED: Ketorolac 30mg Inj IM ONE (20:15)
--- NOTE | 2018-08-18 20:25 | NUR ---
ED Nurse Note: Imaging at bedside
[2018-08-18] MEDS ORDERED: TYLENOL EXTRA500 MG ORAL (20:49)
[2018-08-18 20:56] VITALS: BP 131/68
--- NOTE | 2018-08-18 20:56 | NUR ---
ED Nurse Note: Patient cleared for discharge per ERMD. AO4. NAD. VSS. Patient given prescriptions and discharge instructions; verbalized understanding. ID band removed. Patient ambulated out with all personal belongings with steady gait.
--- NOTE | 2018-08-19 10:33 | Diagnostic Imaging Report ---
Indications: Left knee pain Technique: Three views of the left knee Comparison: None Findings: No acute fractures. No dislocations. Joint spaces are preserved. No radiopaque foreign body. Normal mineralization. Impression: No acute process
== END 2018-08-18 20:56 | disposition home or self-care (01) ==
LOC: EMR 20:12
DX: M25.562 Pain in left knee (principal); I10 Essential (primary) hypertension; G89.29 Other chronic pain; M54.9 Dorsalgia, unspecified; Z86.73 Personal history of transient ischemic attack (TIA), and cerebral infarction without residual deficits
CPT/HCPCS: 73562; 96372; 99283; J1885

== ENCOUNTER 2018-12-09 16:23 | Emergency (ER) | payer MEDICAID ==
[~2018-12-09] VITALS: Ht 157.5 cm; Wt 122.5 kg
[~2018-12-09 16:23] MED LIST changes: +TYLENOL EXTRA500 MG ORAL
[2018-12-09 16:31] VITALS: BP 145/67
[2018-12-09] MEDS ORDERED: ZOFRAN4 M3 ORAL (17:01)
--- NOTE | 2018-12-09 17:01 | Emergency Room Report ---
History of Present Illness General Chief Complaint: Nausea Source: Patient Present Illness HPI 53-year-old female presenting with nausea. She says that 1-1/2 weeks ago she was at a restaurant, and she was drinking a drink and she thinks that she may have swallowed a piece of broken glass. She denies any abdominal pain. She has been able to eat and drink but she says that she has intense nausea that comes and goes. No chest pain no shortness of breath. Has had normal stool Allergies: Coded Allergies: TRAMADOL (Verified Allergy, Unknown, 08/17/16) Patient History Past Medical History: see triage record Past Surgical History: none Pertinent Family History: none Reviewed Nursing Documentation: PMH: Agreed; PSxH: Agreed Nursing Documentation-PMH Past Medical History: No History, Except For Hx Cardiac Problems: No Hx Hypertension: Yes Hx Cancer: No Hx Gastrointestinal Problems: Yes Hx Neurological Problems: Yes - CHRONIC BACK PAIN, Prior back injury Hx Transient Ischemic Attacks: Yes Review of Systems All Other Systems: negative except mentioned in HPI Physical Exam Vital Signs Date Time Temp Pulse Resp B/P (MAP) Pulse Ox O2 Delivery O2 Flow Rate FiO2 12/09/18 16:31 98.2 87 17 97 Room Air Sp02 EP Interpretation: reviewed, normal General Appearance: normal inspection, well appearing, no apparent distress, alert, GCS 15, non-toxic Head: normocephalic, atraumatic Eyes: bilateral eye normal inspection, bilateral eye PERRL, bilateral eye EOMI ENT: normal ENT inspection, normal pharynx, normal voice, moist mucus membranes Neck: normal inspection, full range of motion, supple Respiratory: normal inspection, lungs clear, normal breath sounds, no respiratory distress, no retraction, no wheezing, speaking full sentences, chest symmetrical Cardiovascular #1: normal inspection, regular rate, rhythm, no edema, normal capillary refill Cardiovascular #2: 2+ radial (R), 2+ radial (L) Gastrointestinal: normal inspection, non tender, soft, non-distended, no guarding Musculoskeletal: normal inspection, back normal, normal range of motion, non- tender Neurologic: normal inspection, alert, oriented x3, responsive, motor strength/ tone normal, sensory intact, normal gait, speech normal Psychiatric: normal inspection, judgement/insight normal, memory normal Skin: normal inspection, normal color, no rash, warm/dry, well hydrated, normal turgor Medical Decision Making Diagnostic Impression: Primary Impression: UTI (urinary tract infection) Additional Impression: Nausea alone ER Course 53-year-old female with nausea, said that she swallowed glass one half weeks ago DDX: Patient is not having any severe abdominal pain or vomiting to suggest any bowel perforation, could be GERD/gastritis Plan: Obtain labs, Zofran and fluids and reassess ER course: Patient has remained stable during ED stay. got fluids/zofran feeling much better Disposition: Patient is to be discharged to home. Prescriptions given are Zofran/macrobid Patient is instructed to follow up with their primary care doctor within 5 days. Please note that this Emergency Department Report was dictated using [employer] informatica developer technology software, occasionally this can lead to erroneous entry secondary to interpretation by the dictation equipment Laboratory Tests Test 12/09/18 17:10 White Blood Count 4.6 K/UL (4.8-10.8) L Red Blood Count 4.54 M/UL (4.20-5.40) Hemoglobin 11.8 G/DL (12.0-16.0) L Hematocrit 36.4 % (37.0-47.0) L Mean Corpuscular Volume 80 FL (80-99) Mean Corpuscular Hemoglobin 26.0 PG (27.0-31.0) L Mean Corpuscular Hemoglobin Concent 32.4 G/DL (32.0-36.0) Red Cell Distribution Width 13.6 % (11.6-14.8) Platelet Count 166 K/UL (150-450) Mean Platelet Volume 6.7 FL (6.5-10.1) Neutrophils (%) (Auto) 56.8 % (45.0-75.0) Lymphocytes (%) (Auto) 32.6 % (20.0-45.0) Monocytes (%) (Auto) 4.6 % (1.0-10.0) Eosinophils (%) (Auto) 4.7 % (0.0-3.0) H Basophils (%) (Auto) 1.3 % (0.0-2.0) Urine Color Pale yellow Urine Appearance Clear Urine pH 6 (4.5-8.0) Urine Specific North 1.015 (1.005-1.035) Urine Protein Negative (NEGATIVE) Urine Glucose (UA) Negative (NEGATIVE) Urine Ketones Negative (NEGATIVE) Urine Blood Negative (NEGATIVE) Urine Nitrite Negative (NEGATIVE) Urine Bilirubin Negative (NEGATIVE) Urine Urobilinogen Normal MG/DL (0.0-1.0) Urine Leukocyte Esterase 1+ (NEGATIVE) H Urine RBC 2-4 /HPF (0 - 2) H Urine WBC 5-10 /HPF (0 - 2) H Urine Squamous Epithelial Cells Few /LPF (NONE/OCC) Urine Bacteria Moderate /HPF (NONE) H Urine Yeast Few /HPF (NONE) H Sodium Level 143 MMOL/L (136-145) Potassium Level 4.1 MMOL/L (3.5-5.1) Chloride Level 107 MMOL/L (98-107) Carbon Dioxide Level 30 MMOL/L (21-32) Anion Gap 6 mmol/L (5-15) Blood Urea Nitrogen 18 mg/dL (7-18) Creatinine 0.7 MG/DL (0.55-1.30) Estimate Glomerular Filtration Rate > 60 mL/min (>60) Glucose Level 111 MG/DL (74-106) H Calcium Level 9.4 MG/DL (8.5-10.1) Total Bilirubin 0.2 MG/DL (0.2-1.0) Aspartate Amino Transferase (AST) 15 U/L (15-37) Alanine Aminotransferase (ALT) 25 U/L (12-78) Alkaline Phosphatase 46 U/L (46-116) Total Protein 7.4 G/DL (6.4-8.2) Albumin 3.4 G/DL (3.4-5.0) Globulin 4.0 g/dL Albumin/Globulin Ratio 0.9 (1.0-2.7) L Lipase 124 U/L (73-393) Last Vital Signs Date Time Temp Pulse Resp B/P (MAP) Pulse Ox O2 Delivery O2 Flow Rate FiO2 12/09/18 16:31 98.2 87 17 97 Room Air Disposition: HOME, SELF-CARE Condition: Stable Scripts Nitrofurantoin Monohyd/M-Cryst* (MACROBID 100 MG*) 100 Mg Capsule 100 MG ORAL EVERY 12 HOURS for 7 Days, #14 CAP Prov: Retino,Clairose M.D. 12/09/18 Ondansetron* (ZOFRAN*) 4 Mg Tablet 4 MG ORAL Q6H PRN for Nausea & Vomiting for 7 Days, #10 TAB Prov: Retino,Clairose M.D. 12/09/18 Patient Instructions: Nausea, Adult Bhavya Paul M.D. December 09, 2018 17:00
--- NOTE | 2018-12-09 17:22 | NUR ---
ED Nurse Note: pt as per triage note. pt with nausea but no active vomiting. a/ox3
[2018-12-09 17:36] LABS: APPEARANCE,URINE CLEAR; BILIRUBIN, URINE NEGATIVE (NEGATIVE); COLOR,URINE PALE YELLOW; GLUCOSE, URINE (UA) NEGATIVE (NEGATIVE); KETONES,URINE NEGATIVE (NEGATIVE); LEUKOCYTE ESTERASE ,URINE 1+ (NEGATIVE); NITRITE,URINE NEGATIVE (NEGATIVE); PH,URINE 6 (4.5-8.0); PROTEIN,URINE NEGATIVE (NEGATIVE); UROBILINOGEN,URINE NORMAL MG/DL (0.0-1.0)
[2018-12-09 17:42] LABS: BASOPHILS % (AUTO) 1.3 % (0.0-2.0); EOSINOPHILS % (AUTO) 4.7 % (0.0-3.0); HEMATOCRIT 36.4 % (37.0-47.0); HEMOGLOBIN 11.8 G/DL (12.0-16.0); LYMPHOCYTES % (AUTO) 32.6 % (20.0-45.0); MEAN CORPUSCULAR VOLUME 80 FL (80-99); MONOCYTES % (AUTO) 4.6 % (1.0-10.0); NEUTROPHILS % (AUTO) 56.8 % (45.0-75.0); PLATELET COUNT 166 K/UL (150-450); RED BLOOD COUNT 4.54 M/UL (4.20-5.40); RED CELL DISTRIBUTION WIDTH 13.6 % (11.6-14.8); WHITE BLOOD COUNT 4.6 K/UL (4.8-10.8)
[2018-12-09 17:46] LABS: ANION GAP 6 mmol/L (5-15); BLOOD UREA NITROGEN 18 mg/dL (7-18); CALCIUM 9.4 MG/DL (8.5-10.1); CARBON DIOXIDE 30 MMOL/L (21-32); CHLORIDE 107 MMOL/L (98-107); CREATININE 0.7 MG/DL (0.55-1.30); POTASSIUM 4.1 MMOL/L (3.5-5.1); SODIUM 143 MMOL/L (136-145)
[2018-12-09 17:50] LABS: ALANINE AMINOTRANSFERASE 25 U/L (12-78); ALBUMIN 3.4 G/DL (3.4-5.0); ALBUMIN/GLOBULIN RATIO 0.9 (1.0-2.7); ALKALINE PHOSPHATASE 46 U/L (46-116); ASPARTATE AMINO TRANSFERASE 15 U/L (15-37); BILIRUBIN,TOTAL 0.2 MG/DL (0.2-1.0)
[2018-12-09] MEDS ORDERED: NITROFURANTOIN100 M2 ORAL (18:06)
[2018-12-09 18:15] VITALS: BP 141/62
--- NOTE | 2018-12-09 18:15 | NUR ---
ER DISCHARGE NOTE: Patient is cleared to be discharged per ERMD, pt is aox4, on room air, with stable vital signs. pt was given dc and prescription instructions, pt was able to verbalize understanding, pt id band and iv site removed without complications. pt is able to ambulate with steady gait. pt took all belongings.
== END 2018-12-09 18:15 | disposition home or self-care (01) ==
LOC: EMR 16:49
DX: N39.0 Urinary tract infection, site not specified (principal); R11.0 Nausea; Z88.8 Allergy status to other drugs, medicaments and biological substances; I10 Essential (primary) hypertension; Z86.73 Personal history of transient ischemic attack (TIA), and cerebral infarction without residual deficits
CPT/HCPCS: 36415; 80053; 81003; 83690; 85025; 87086; 96361; 96374; 99284; J2405

== ENCOUNTER 2019-05-28 00:31 | Emergency (ER) | payer MEDICAID ==
[~2019-05-28] VITALS: Ht 160 cm; Wt 124.7 kg
[~2019-05-28 00:31] MED LIST changes: +NITROFURANTOIN100 M2 ORAL; +ZOFRAN4 M3 ORAL
[2019-05-28] MEDS ORDERED: FUROSEMIDE20 M1 ORAL (00:39)
--- NOTE | 2019-05-28 00:48 | NUR ---
ED Nurse Note: Pt ambulated to ED from home. Pt has not had a period in 4+ years but has had vaginal bleeding x3days, also c/o abdominal cramps
[2019-05-28 00:50] VITALS: BP 151/86
[2019-05-28 01:10] LABS: APPEARANCE,URINE CLEAR; BILIRUBIN, URINE NEGATIVE (NEGATIVE); COLOR,URINE PALE YELLOW; GLUCOSE, URINE (UA) NEGATIVE (NEGATIVE); KETONES,URINE NEGATIVE (NEGATIVE); LEUKOCYTE ESTERASE ,URINE NEGATIVE (NEGATIVE); NITRITE,URINE NEGATIVE (NEGATIVE); PH,URINE 6 (4.5-8.0); PROTEIN,URINE 1+ (NEGATIVE); UROBILINOGEN,URINE NORMAL MG/DL (0.0-1.0)
--- NOTE | 2019-05-28 01:20 | Emergency Room Report ---
History of Present Illness General Chief Complaint: Female Urogenital Problems Source: Patient Present Illness HPI 53-year-old female presents with spotting, and vaginal bleeding x4 days, patient denies any chest pain shortness of breath lightheadedness, patient has not had a period for over 4 days, patient denies any fevers chills, nausea vomiting, she does endorse some lower abdominal cramps, severity is mild. Allergies: Coded Allergies: TRAMADOL (Verified Allergy, Unknown, 08/17/16) Patient History Past Medical History: see triage record Now: No Reviewed Nursing Documentation: PMH: Agreed; PSxH: Agreed Nursing Documentation-PMH Past Medical History: No History, Except For Hx Cardiac Problems: No Hx Hypertension: Yes Hx Cancer: No Hx Gastrointestinal Problems: Yes Hx Neurological Problems: Yes - CHRONIC BACK PAIN, Prior back injury Hx Transient Ischemic Attacks: Yes Review of Systems All Other Systems: negative except mentioned in HPI Physical Exam Vital Signs Date Time Temp Pulse Resp B/P (MAP) Pulse Ox O2 Delivery O2 Flow Rate FiO2 05/28/19 00:34 98.8 96 14 151/86 (107) 96 Room Air Sp02 EP Interpretation: reviewed, normal General Appearance: well appearing, no apparent distress, alert Head: normocephalic, atraumatic Eyes: bilateral eye PERRL, bilateral eye EOMI ENT: uvula midline, moist mucus membranes Neck: supple, thyroid normal, supple/symm/no masses Respiratory: lungs clear, no respiratory distress, no retraction, no accessory muscle use Cardiovascular #1: normal peripheral pulses, regular rate, rhythm, no edema, no gallop, no murmur Gastrointestinal: non tender, soft, no guarding, no rebound Musculoskeletal: normal inspection Neurologic: alert, oriented x3 Psychiatric: mood/affect normal Skin: no rash, warm/dry Medical Decision Making Diagnostic Impression: Primary Impression: Post-menopause bleeding ER Course 53-year-old female presents with postmenopausal bleeding differential diagnosis includes fibroids, endometrial carcinoma, hormone withdrawal. Labs normal, mild anemia Ultrasound nondiagnostic due to body habitus as well as fibroids CT scan shows no acute pathology, counseled patient to follow-up with gynecology for further evaluation as well as endometrial biopsy. Disposition home with return precautions Laboratory Tests Test 05/28/19 00:45 05/28/19 01:40 Urine Color Pale yellow Urine Appearance Clear Urine pH 6 (4.5-8.0) Urine Specific [place] 1.015 (1.005-1.035) Urine Protein 1+ (NEGATIVE) H Urine Glucose (UA) Negative (NEGATIVE) Urine Ketones Negative (NEGATIVE) Urine Blood 4+ (NEGATIVE) H Urine Nitrite Negative (NEGATIVE) Urine Bilirubin Negative (NEGATIVE) Urine Urobilinogen Normal MG/DL (0.0-1.0) Urine Leukocyte Esterase Negative (NEGATIVE) Urine RBC 10-15 /HPF (0 - 2) H Urine WBC 0 /HPF (0 - 2) Urine Squamous Epithelial Cells Few /LPF (NONE/OCC) Urine Bacteria None /HPF (NONE) White Blood Count 5.1 K/UL (4.8-10.8) Red Blood Count 4.51 M/UL (4.20-5.40) Hemoglobin 11.9 G/DL (12.0-16.0) L Hematocrit 37.1 % (37.0-47.0) Mean Corpuscular Volume 82 FL (80-99) Mean Corpuscular Hemoglobin 26.5 PG (27.0-31.0) L Mean Corpuscular Hemoglobin Concent 32.2 G/DL (32.0-36.0) Red Cell Distribution Width 13.9 % (11.6-14.8) Platelet Count 189 K/UL (150-450) Mean Platelet Volume 7.7 FL (6.5-10.1) Neutrophils (%) (Auto) 57.4 % (45.0-75.0) Lymphocytes (%) (Auto) 30.8 % (20.0-45.0) Monocytes (%) (Auto) 7.3 % (1.0-10.0) Eosinophils (%) (Auto) 3.3 % (0.0-3.0) H Basophils (%) (Auto) 1.2 % (0.0-2.0) Prothrombin Time 9.8 SEC (9.30-11.50) Prothrombin Time INR 0.9 (0.9-1.1) PTT 25 SEC (23-33) Sodium Level 141 MMOL/L (136-145) Potassium Level 4.3 MMOL/L (3.5-5.1) Chloride Level 106 MMOL/L (98-107) Carbon Dioxide Level 33 MMOL/L (21-32) H Anion Gap 3 mmol/L (5-15) L Blood Urea Nitrogen 21 mg/dL (7-18) H Creatinine 0.8 MG/DL (0.55-1.30) Estimate Glomerular Filtration Rate > 60 mL/min (>60) Glucose Level 110 MG/DL (74-106) H Calcium Level 9.1 MG/DL (8.5-10.1) Total Bilirubin 0.2 MG/DL (0.2-1.0) Aspartate Amino Transferase (AST) 16 U/L (15-37) Alanine Aminotransferase (ALT) 35 U/L (12-78) Alkaline Phosphatase 52 U/L (46-116) Total Protein 7.7 G/DL (6.4-8.2) Albumin 3.6 G/DL (3.4-5.0) Globulin 4.1 g/dL Albumin/Globulin Ratio 0.9 (1.0-2.7) L Lipase 123 U/L (73-393) CT/MRI/US Diagnostic Results CT/MRI/US Diagnostic Results : Impression Preliminary Findings Only See Final Report For Complete Findings CT ABDOMEN & PELVIS With Contrast: Comparison with 02/27/2012 No acute abnormality. Normal appendix. No bowel obstruction. Diverticulosis, without evidence of diverticulitis. 7 mm well-circumscribed hypodensity lower pole left kidney which is too small to characterize but likely represents a cyst. The kidneys are otherwise unremarkable. Radiologist: Ashley Longo MD Study ready at 02:38 and initial results transmitted at 02:48 Last Vital Signs Date Time Temp Pulse Resp B/P (MAP) Pulse Ox O2 Delivery O2 Flow Rate FiO2 05/28/19 00:50 98.8 14 151/86 96 Room Air 05/28/19 00:34 96 Disposition: HOME, SELF-CARE Condition: Stable Referrals: [facility] Misti Yanes [facility] Patient Instructions: Abnormal Uterine Bleeding, [id number] Additional Instructions: The patient was provided with discharge instructions, notified to follow-up with a primary care doctor and or specialist in the next 24-48 hours, and to return to the ED if they have worsening of their symptoms. Please note that this report is being documented using [employer] technology. This can lead to erroneous entry secondary to incorrect interpretation by the dictating instrument. PLEASE FOLLOW-UP WITH COMMUNICATIONS EXECUTIVE FOR EVALUATION OF POST MENOPAUSAL BLEEDING Marcos Burciaga MD May 28, 2019 01:20
[2019-05-28] MEDS ORDERED: Omnipaque-300 100ml vial INJ PRN (01:45)
[2019-05-28 01:53] LABS: BASOPHILS % (AUTO) 1.2 % (0.0-2.0); EOSINOPHILS % (AUTO) 3.3 % (0.0-3.0); HEMATOCRIT 37.1 % (37.0-47.0); HEMOGLOBIN 11.9 G/DL (12.0-16.0); LYMPHOCYTES % (AUTO) 30.8 % (20.0-45.0); MEAN CORPUSCULAR VOLUME 82 FL (80-99); MONOCYTES % (AUTO) 7.3 % (1.0-10.0); NEUTROPHILS % (AUTO) 57.4 % (45.0-75.0); PLATELET COUNT 189 K/UL (150-450); RED BLOOD COUNT 4.51 M/UL (4.20-5.40); RED CELL DISTRIBUTION WIDTH 13.9 % (11.6-14.8); WHITE BLOOD COUNT 5.1 K/UL (4.8-10.8)
[2019-05-28 02:04] LABS: ANION GAP 3 mmol/L (5-15); BLOOD UREA NITROGEN 21 mg/dL (7-18); CALCIUM 9.1 MG/DL (8.5-10.1); CARBON DIOXIDE 33 MMOL/L (21-32); CHLORIDE 106 MMOL/L (98-107); CREATININE 0.8 MG/DL (0.55-1.30); POTASSIUM 4.3 MMOL/L (3.5-5.1); SODIUM 141 MMOL/L (136-145)
[2019-05-28 02:06] LABS: INR 0.9 (0.9-1.1)
[2019-05-28 02:08] LABS: ALANINE AMINOTRANSFERASE 35 U/L (12-78); ALBUMIN 3.6 G/DL (3.4-5.0); ALBUMIN/GLOBULIN RATIO 0.9 (1.0-2.7); ALKALINE PHOSPHATASE 52 U/L (46-116); ASPARTATE AMINO TRANSFERASE 16 U/L (15-37); BILIRUBIN,TOTAL 0.2 MG/DL (0.2-1.0)
--- NOTE | 2019-05-28 02:50 | Diagnostic Imaging Report ---
Indication: Abdominal pain Technique: Continuous helical transaxial imaging of the abdomen and pelvis was obtained from the lung bases to the pubic symphysis during intravenous contrast administration. Coronal 2-D reformats were also obtained. Study obtained in a Siemens sensation [address] Automatic Exposure Control was utilized. Total Dose length Product (DLP): [address] Dose Index Volume (CTDIvol): 18.7 mGy Comparison: 02/27/2012 Findings: The lung bases are clear. The exam is limited by beam starvation artifact large body habitus. Kidneys are unremarkable. The liver appears slightly hypodense. Gallbladder is contracted. Spleen and pancreas, both adrenal glands show no definite abnormality. There is no hydronephrosis. Diverticula noted in the colon. No definite diverticulitis appreciated. There are suspected uterine fibroids with the largest measuring about 6 cm. This may be better evaluated with ultrasound. IMPRESSION: Limited study due to large body habitus. Uterine fibroids. Diverticulosis of the colon. Contracted gallbladder. Mild fatty liver The CT scanner at [facility] is accredited by the [employer] and the scans are performed using dose optimization techniques as appropriate to a performed exam including Automatic Exposure control.
[2019-05-28 03:00] VITALS: BP 151/86
== END 2019-05-28 03:00 | disposition home or self-care (01) ==
LOC: EMR 00:48
DX: N95.0 Postmenopausal bleeding (principal); Z88.6 Allergy status to analgesic agent; I10 Essential (primary) hypertension; G89.29 Other chronic pain; M54.9 Dorsalgia, unspecified; Z86.73 Personal history of transient ischemic attack (TIA), and cerebral infarction without residual deficits
CPT/HCPCS: 36415; 74177; 80053; 81003; 83690; 85025; 85610; 85730; Q9967; Z7502; 99284

== ENCOUNTER 2019-07-08 21:08 | Emergency (ER) | payer MEDICAID ==
[~2019-07-08] VITALS: Ht 160 cm; Wt 126.1 kg
[~2019-07-08 21:08] MED LIST changes: +FUROSEMIDE20 M1 ORAL
[2019-07-08 21:26] VITALS: BP 136/72
--- NOTE | 2019-07-08 21:39 | Emergency Room Report ---
History of Present Illness General Chief Complaint: Flu Like Symptoms Source: Medical Record Present Illness HPI Patient is a 53-year-old female presents after increased cough and difficulty with breathing. She reports having prior history of diuretic use but states that she did not take her diuretic for the past few days. She previously been prescribed Lasix. She had been having upper respiratory symptoms for several weeks. She reports having some worsening over the past 2 days. She reports having some increased tightness. She denies any current fever. She denies any sore throat.She denies any increased leg swelling. Allergies: Coded Allergies: TRAMADOL (Verified Allergy, Unknown, 08/17/16) Patient History Past Medical History: see triage record Reviewed Nursing Documentation: PMH: Agreed; PSxH: Agreed Nursing Documentation-PMH Past Medical History: No History, Except For Hx Cardiac Problems: No Hx Hypertension: Yes Hx Cancer: No Hx Gastrointestinal Problems: Yes Hx Neurological Problems: Yes - CHRONIC BACK PAIN, Prior back injury Hx Transient Ischemic Attacks: Yes Review of Systems All Other Systems: negative except mentioned in HPI Physical Exam Vital Signs Date Time Temp Pulse Resp B/P (MAP) Pulse Ox O2 Delivery O2 Flow Rate FiO2 07/08/19 21:26 98.2 95 18 136/72 98 Room Air Sp02 EP Interpretation: reviewed, normal General Appearance: normal inspection, well appearing, no apparent distress, alert, GCS 15, obese Head: atraumatic ENT: normal ENT inspection, hearing grossly normal, normal voice Neck: normal inspection, full range of motion, supple, no bony tend Respiratory: normal inspection, no respiratory distress, no retraction, wheezing Cardiovascular #1: regular rate, rhythm, no edema Gastrointestinal: normal inspection, normal bowel sounds, non tender, soft, no guarding, no hernia Genitourinary: no CVA tenderness Musculoskeletal: normal inspection, back normal, normal range of motion Neurologic: alert, motor strength/tone normal, 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 Differential diagnosis include was not limited to pneumonia, bronchitis, viral infection among others. Patient has a benign exam and does not appear to require any laboratory testing at this time. Breathing treatment was ordered.Patient given breathing treatment as well as oral steroids with market improvement in her respiratory status. Chest x-ray 1 view interpreted by me showed normal cardiac size with no no evident infiltrate. Patient appears to be stable for outpatient management pursued given prescription for oral steroids as well as albuterol. She is advised to return if worse. This medical record is generated with [employer] engineering design manager software. There may be some engineering design manager discrepancies related to use of this software Last Vital Signs Date Time Temp Pulse Resp B/P (MAP) Pulse Ox O2 Delivery O2 Flow Rate FiO2 07/08/19 21:30 89 16 Room Air 07/08/19 21:26 98.2 136/72 (93) 98 Status: improved Disposition: HOME, SELF-CARE Condition: Stable Scripts Prednisone* (PREDNISONE*) 20 Mg Tablet 40 MG ORAL DAILY, #10 TAB Prov: Franklin Hall MD 07/08/19 Albuterol Sulfate* (ALBUTEROL SULFATE MDI*) 8.5 Gm Hfa.aer.ad 2 PUFF INH Q6H, #1 INH 0 Refills Prov: Franklin Hall MD 07/08/19 Potassium Chloride* (K-DUR*) 10 Meq Capsule.er 10 MEQ ORAL DAILY, #7 TAB 0 Refills Prov: Franklin Hall MD 07/08/19 Franklin Hall MD Jul 08, 2019 21:39
[2019-07-08] MEDS ORDERED: Albuterol/Ipratropium 3ml neb HHN ONE ×2 (21:45→22:15)
[2019-07-08] MEDS ORDERED: PREDNISONE20 MG ORAL (22:28)
[2019-07-08] MEDS ORDERED: ALBUTEROL SULF8.5 GM INH (22:28)
[2019-07-08] MEDS ORDERED: POTASSIUM CHLO10 MEQ ORAL (22:28)
[2019-07-08 22:31] VITALS: BP 128/74
--- NOTE | 2019-07-09 11:49 | Diagnostic Imaging Report ---
Indication: Chest pain, shortness of breath Technique: XRAY Chest 1v Comparison: 07/08/2018 Findings: Exam due to underpenetration. Asymmetric haziness of the bilateral lower lungs likely artifactual related to attenuation from overlying soft tissues. Heart size and mediastinal contours are stable. No definite focal airspace consolidation, pleural effusion, pneumothorax or radiographic evidence of pulmonary edema. No acute osseous abnormality. Impression: Limited exam due to underpenetration, likely related to large body habitus. No definite radiographic evidence of acute cardiopulmonary disease.
== END 2019-07-08 22:45 | disposition home or self-care (01) ==
LOC: EMR 22:30
DX: J20.9 Acute bronchitis, unspecified (principal); I10 Essential (primary) hypertension; Z88.8 Allergy status to other drugs, medicaments and biological substances; Z86.73 Personal history of transient ischemic attack (TIA), and cerebral infarction without residual deficits
CPT/HCPCS: 71045; J7512; Z7502; 99284; J7620

== ENCOUNTER 2019-09-30 18:52 | Emergency (ER) | payer MEDICAID ==
[~2019-09-30] VITALS: Ht 160 cm; Wt 127.0 kg
[~2019-09-30 18:52] MED LIST changes: +POTASSIUM CHLO10 MEQ ORAL
[2019-09-30 19:15] VITALS: BP 141/71
[2019-09-30] MEDS ORDERED: Methocarbamol 750mg tab ORAL ONE (19:15)
[2019-09-30] MEDS ORDERED: Ketorolac 30mg Inj IM ONE (19:15)
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
[2019-09-30] MEDS ORDERED: VOLTAREN100 G1 TP (20:00)
[2019-09-30] MEDS ORDERED: IBUPROFEN600 MG ORAL (20:00)
[2019-09-30] MEDS ORDERED: ROBAXIN-500MG ORAL (20:00)
[2019-09-30 20:12] VITALS: BP 130/85
--- NOTE | 2019-10-01 10:26 | Diagnostic Imaging Report ---
Indication: Right knee Pain 3 views of the right knee were obtained. Findings: No acute fracture, malalignment, or joint effusion are identified. Impression: Negative for acute findings.
--- NOTE | 2019-10-01 10:26 | Diagnostic Imaging Report ---
Indications: Right hip pain Findings: Two views of the right hip were obtained. No acute fracture is demonstrated. Alignment of the hip is within normal limits. Soft tissues are unremarkable. Impression: Negative for acute injury.
== END 2019-09-30 20:12 | disposition home or self-care (01) ==
LOC: EMR 19:31
DX: S76.011A Strain of muscle, fascia and tendon of right hip, initial encounter (principal); S86.911A Strain of unspecified muscle(s) and tendon(s) at lower leg level, right leg, initial encounter; V03.90XA Pedestrian on foot injured in collision with car, pick-up truck or van, unspecified whether traffic or nontraffic accident, initial encounter; Y92.410 Unspecified street and highway as the place of occurrence of the external cause; I10 Essential (primary) hypertension; G89.29 Other chronic pain; M54.9 Dorsalgia, unspecified; M17.10 Unilateral primary osteoarthritis, unspecified knee; Z86.73 Personal history of transient ischemic attack (TIA), and cerebral infarction without residual deficits; Z88.6 Allergy status to analgesic agent
CPT/HCPCS: 73501; 73562; 96372; J1885; Z7502; 99284

== ENCOUNTER 2019-12-25 19:26 | Emergency (ER) | payer MEDICAID ==
[~2019-12-25] VITALS: Ht 160 cm; Wt 124.7 kg
[~2019-12-25 19:26] MED LIST changes: +ROBAXIN-500MG ORAL; +VOLTAREN100 G1 TP
--- NOTE | 2019-12-25 19:34 | NUR ---
ED Nurse Note: PT walked in to ED for C/O pain to right shoulder x 3 weeks. pt states she fell on right shoulder back in september 2019. pt been taking motrin and ibuprofen but is not effective.
[2019-12-25 19:35] VITALS: BP 155/67
[2019-12-25] MEDS ORDERED: Ketorolac 60mg Inj IM ONE (20:00)
--- NOTE | 2019-12-25 20:02 | Diagnostic Imaging Report ---
EXAM: XR Right Shoulder Complete, 2 or More Views CLINICAL HISTORY: FALL TECHNIQUE: Two or more views of the right shoulder. COMPARISON: No relevant prior studies available. FINDINGS: Bones/joints: No acute fracture. Mild degenerative changes of the glenohumeral and AC joints. Soft tissues: No radiodense foreign body. IMPRESSION: No acute fracture or dislocation.
[2019-12-25 20:15] VITALS: BP 150/74
[2019-12-25] MEDS ORDERED: NAPROXEN250 MG ORAL (20:15)
--- NOTE | 2019-12-25 20:15 | NUR ---
ER DISCHARGE NOTE: Patient is cleared to be discharged per ERMD, pt is aox4, on room air, with stable vital signs. pt was given dc and prescription instructions, pt was able to verbalize understanding, pt id band removed without complications. pt is able to ambulate with steady gait. pt took all belongings.
--- NOTE | 2019-12-25 20:41 | Emergency Room Report ---
History of Present Illness General Chief Complaint: Pain Source: Patient Present Illness HPI Patient is a 54-year-old female who presents to the ER complaining of right shoulder pain. Patient states that she was going up some stairs had a heavy bag in her hand began to fall and swung her arm backwards. She states this happened in September. Patient states that the pain got better but that the pain started again 3 weeks ago. She denies any new trauma. She denies any focal weakness. She denies any chest pain or shortness of breath. Patient states that she has tried taking Tylenol and Motrin for the pain. 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 Patient History Last Menstrual Period: na Now: No Reviewed Nursing Documentation: PMH: Agreed; PSxH: Agreed Nursing Documentation-PMH Past Medical History: No History, Except For Hx Cardiac Problems: No Hx Hypertension: Yes Hx Cancer: No Hx Gastrointestinal Problems: Yes Hx Neurological Problems: Yes - CHRONIC BACK PAIN, Prior back injury Hx Transient Ischemic Attacks: Yes Review of Systems All Other Systems: negative except mentioned in HPI Physical Exam Vital Signs Date Time Temp Pulse Resp B/P (MAP) Pulse Ox O2 Delivery O2 Flow Rate FiO2 12/25/19 19:30 98.4 109 18 155/67 (96) 97 Room Air Sp02 EP Interpretation: reviewed, normal General Appearance: no apparent distress, alert, GCS 15, non-toxic Head: normocephalic, atraumatic Eyes: bilateral eye normal inspection, bilateral eye PERRL ENT: hearing grossly normal, normal pharynx, no angioedema, normal voice Neck: full range of motion, supple/symm/no masses Respiratory: chest non-tender, lungs clear, normal breath sounds, speaking full sentences Cardiovascular #1: regular rate, rhythm, no edema Gastrointestinal: normal bowel sounds, non tender Rectal: deferred Genitourinary: no CVA tenderness Musculoskeletal: other - Right anterior shoulder tenderness to palpation Neurologic: alert, motor strength/tone normal, oriented x3, sensory intact, responsive, speech normal Skin: no rash Lymphatic: no adenopathy Medical Decision Making Diagnostic Impression: Primary Impression: Shoulder sprain ER Course Patient's x-rays demonstrate no acute fractures. Possible rotator cuff injury. Patient will follow-up with her primary care physician for orthopedic and MRI referral. Other X-Ray Diagnostic Results Other X-Ray Diagnostic Results : X-Ray ordered: R shoulder # of Views/Limited Vs Complete: 3 View Indication: Pain EP Interpretation: Yes Interpretation: no dislocation, no fractures, other - no foreign body Impression: No acute disease Electronically Signed by: Deepika Noble MD Last Vital Signs Date Time Temp Pulse Resp B/P (MAP) Pulse Ox O2 Delivery O2 Flow Rate FiO2 12/25/19 20:15 98.2 99 16 150/74 98 Room Air Disposition: HOME, SELF-CARE Condition: Stable Scripts Naproxen* (NAPROSYN*) 250 Mg Tablet 500 MG ORAL TWICE A DAY, #30 TAB 0 Refills Prov: Deepika Noble M.D. 12/25/19 Patient Instructions: Shoulder Sprain Additional Instructions: Please ask your primary care physician to refer you to an orthopedist and send you for MRI. Deepika Noble M.D. December 25, 2019 20:41
== END 2019-12-25 20:15 | disposition home or self-care (01) ==
LOC: EMR 20:00
DX: S43.401A Unspecified sprain of right shoulder joint, initial encounter (principal); I10 Essential (primary) hypertension; W10.9XXA Fall (on) (from) unspecified stairs and steps, initial encounter; Y93.01 Activity, walking, marching and hiking; Y92.9 Unspecified place or not applicable; Z86.73 Personal history of transient ischemic attack (TIA), and cerebral infarction without residual deficits; Z88.5 Allergy status to narcotic agent
CPT/HCPCS: 73030; 96372; Z7502; 99283

== ENCOUNTER 2020-09-10 00:35 | Emergency (ER) | payer MEDICAID ==
[~2020-09-10] VITALS: Ht 160 cm; Wt 127.0 kg
[~2020-09-10 00:35] MED LIST changes: +NAPROXEN250 MG ORAL
--- NOTE | 2020-09-10 01:38 | Emergency Room Report ---
History of Present Illness General Chief Complaint: Palpitations Source: Patient Present Illness HPI Disclaimer: Please note that this report is being documented using [employer] technology. This can lead to erroneous entry secondary to incorrect interpretation by the dictating instrument. HPI: 54-year-old female presents for palpitations. She states she has felt her heart beating fast over the past 3 to 4 days. Unsure about the cause. Denies changes in diet, stress level. Denies new medications. Drinks 1 cup of coffee daily. Denies alcohol or drug use. Denies chest pain, shortness of breath, cough, congestion, fever, chills, nausea, vomiting, diarrhea, diaphoresis, numbness or tingling. States she had palpitations many years ago and was worked up and was determined to be stress related. Currently feeling comfortable. Patient had cardio evaluation with stress test prior to knee surgery March 2020. Reportedly her cardiac work-up was unremarkable. 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 EOMI. Cardiovascular: RRR. S1 and S2 normal. No murmur appreciated Resp: Normal work of breathing. No cough, wheezing or crackles appreciated Abdomen: Abdomen is soft, nondistended. Nontender Skin: Intact. No abrasions, laceration or rash over the exposed skin MSK: Normal tone and bulk. Moving all extremities. No obvious deformity. Neuro: Awake and alert. Mentating appropriately. Medical Decision Making Diagnostic Impression: Primary Impression: Palpitations Additional Impression: Supraventricular dysrhythmia ER Course This is 54-year-old female presenting for palpitations. Differential includes was not limited to arrhythmia, dehydration, ACS, CHF, anxiety, stress, hyperthyroidism, electrolyte abnormality among others. EKG shows sinus rhythm with intermittent arrhythmia possible supraventricular complexes. No obvious ischemic changes. Cardiac similar appears normal. No obvious infiltrate or other findings on chest x-ray. Troponin negative. Labs otherwise unremarkable. Patient resting comfortably. I think she is stable for outpatient follow-up and reevaluation by cardiology. Discussed Holter monitor, sleep hygiene, stress reduction, avoiding caffeine. Instructed to return with new or worsening symptoms. She understands and agrees with this treatment plan. Laboratory Tests Test 09/10/20 01:56 White Blood Count 4.7 K/UL (4.8-10.8) L Red Blood Count 4.82 M/UL (4.20-5.40) Hemoglobin 12.1 G/DL (12.0-16.0) Hematocrit 39.8 % (37.0-47.0) Mean Corpuscular Volume 83 FL (80-99) Mean Corpuscular Hemoglobin 25.2 PG (27.0-31.0) L Mean Corpuscular Hemoglobin Concent 30.5 G/DL (32.0-36.0) L Red Cell Distribution Width 14.4 % (11.6-14.8) Platelet Count 191 K/UL (150-450) Mean Platelet Volume 8.6 FL (6.5-10.1) Neutrophils (%) (Auto) 55.1 % (45.0-75.0) Lymphocytes (%) (Auto) 33.4 % (20.0-45.0) Monocytes (%) (Auto) 6.6 % (1.0-10.0) Eosinophils (%) (Auto) 3.9 % (0.0-3.0) H Basophils (%) (Auto) 1.0 % (0.0-2.0) Sodium Level 145 MMOL/L (136-145) Potassium Level 3.9 MMOL/L (3.5-5.1) Chloride Level 109 MMOL/L (98-107) H Carbon Dioxide Level 30 MMOL/L (21-32) Anion Gap 6 mmol/L (5-15) Blood Urea Nitrogen 26 mg/dL (7-18) H Creatinine 0.8 MG/DL (0.55-1.30) Estimated Glomerular Filtration Rate > 60 mL/min (>60) Glucose Level 110 MG/DL (74-106) H Calcium Level 9.4 MG/DL (8.5-10.1) Total Bilirubin 0.2 MG/DL (0.2-1.0) Aspartate Amino Transferase (AST) 15 U/L (15-37) Alanine Aminotransferase (ALT) 25 U/L (12-78) Alkaline Phosphatase 51 U/L (46-116) Troponin I 0.002 ng/mL (0.000-0.056) Total Protein 7.9 G/DL (6.4-8.2) Albumin 3.5 G/DL (3.4-5.0) Globulin 4.4 g/dL Albumin/Globulin Ratio 0.8 (1.0-2.7) L Thyroid Stimulating Hormone (TSH) 3.206 uiU/mL (0.358-3.740) Free Thyroxine 0.89 NG/DL (0.76-1.46) Free Triiodothyronine 2.4 pg/mL (2.3-4.2) EKG Diagnostic Results Troponin ordered: Yes When was troponin ordered?: Sep 10, 2020 EKG Time: 01:41 Rate: tachycardiac Rhythm: NSR ST Segments: no acute changes Other Impression Sinus rhythm with sinus arrhythmia Rhythm Strip Diag. Results Rhythm Strip Time: 01:41 EP Interpretation: yes Rate: 100s Rhythm: other - Occasional supraventricular complex Chest X-Ray Diagnostic Results Chest X-Ray Diagnostic Results : Chest X-Ray Ordered: Yes # of Views/Limited/Complete: 1 View Indication: Other - Palpitations Interpretation: no consolidation, no effusion, no pneumothorax, no acute cardiopulmonary disease Impression: No acute disease Electronically Signed by: Electronically signed by Dr. Gus Rocha MD Last Vital Signs Date Time Temp Pulse Resp B/P (MAP) Pulse Ox O2 Delivery O2 Flow Rate FiO2 09/10/20 01:20 98.1 99 18 136/67 (90) 96 Room Air Disposition: HOME, SELF-CARE Condition: Stable Scripts No Active Prescriptions or Reported Meds Gus Rocha MD Sep 10, 2020 01:38
--- NOTE | 2020-09-10 01:57 | NUR ---
ED Nurse Note: Pt reports she has been having palpitations for past several days that were more constant today. Pt denies any pain. Pt AAO x4 and ambulated into ED.
[2020-09-10 01:58] VITALS: BP 155/93
[2020-09-10 02:08] LABS: EOSINOPHILS % (AUTO) 3.9 % (0.0-3.0); HEMATOCRIT 39.8 % (37.0-47.0); HEMOGLOBIN 12.1 G/DL (12.0-16.0); LYMPHOCYTES % (AUTO) 33.4 % (20.0-45.0); MEAN CORPUSCULAR VOLUME 83 FL (80-99); MONOCYTES % (AUTO) 6.6 % (1.0-10.0); NEUTROPHILS % (AUTO) 55.1 % (45.0-75.0); PLATELET COUNT 191 K/UL (150-450); RED BLOOD COUNT 4.82 M/UL (4.20-5.40); RED CELL DISTRIBUTION WIDTH 14.4 % (11.6-14.8); WHITE BLOOD COUNT 4.7 K/UL (4.8-10.8)
[2020-09-10 02:17] LABS: ANION GAP 6 mmol/L (5-15); BLOOD UREA NITROGEN 26 mg/dL (7-18); CALCIUM 9.4 MG/DL (8.5-10.1); CARBON DIOXIDE 30 MMOL/L (21-32); CHLORIDE 109 MMOL/L (98-107); CREATININE 0.8 MG/DL (0.55-1.30); POTASSIUM 3.9 MMOL/L (3.5-5.1); SODIUM 145 MMOL/L (136-145)
--- NOTE | 2020-09-10 02:17 | Diagnostic Imaging Report ---
EXAM: XR Chest, 1 View CLINICAL HISTORY: OSTEOMY TECHNIQUE: Frontal view of the chest. COMPARISON: Chest radiograph dated 07/08/2019. FINDINGS: Cardiac, mediastinal, and hilar contours are unremarkable. No focal airspace disease. No pneumothorax or pleural effusion. No acute skeletal findings. IMPRESSION: No acute cardiopulmonary disease.
[2020-09-10 02:31] LABS: ALANINE AMINOTRANSFERASE 25 U/L (12-78); ALBUMIN 3.5 G/DL (3.4-5.0); ALBUMIN/GLOBULIN RATIO 0.8 (1.0-2.7); ALKALINE PHOSPHATASE 51 U/L (46-116); ASPARTATE AMINO TRANSFERASE 15 U/L (15-37); BILIRUBIN,TOTAL 0.2 MG/DL (0.2-1.0)
[2020-09-10 02:51] VITALS: BP 145/76
--- NOTE | 2020-09-10 02:51 | NUR ---
ER DISCHARGE NOTE: Patient is cleared to be discharged per ER MD, pt is aaox4, on room air, with stable vital signs. pt was given d/c and prescription instructions, pt was able to verbalize understanding, pt id band and iv site removed without complications. pt is able to ambulate with steady gait. pt took all belongings.
--- NOTE | 2020-09-10 12:25 | Cardiology Report ---
APPROVED REPORT EKG Measurement Heart [id number] <Conclusion> Sinus tachycardia with premature supraventricular complexes Otherwise normal ECG
== END 2020-09-10 02:52 | disposition home or self-care (01) ==
LOC: EMR 01:45
DX: I47.1 Supraventricular tachycardia (principal); R00.2 Palpitations; Z88.5 Allergy status to narcotic agent; Z86.73 Personal history of transient ischemic attack (TIA), and cerebral infarction without residual deficits
CPT/HCPCS: 36415; 71045; 80053; 84439; 84443; 84481; 84484; 85025; 93005; Z7502; 99284